=== PATIENT | female | born 1980 | race Caucasian/White ===

== ENCOUNTER 2016-11-03 07:20 | Day surgery (SDC) | payer OTHER ==
[~2016-11-03] VITALS: Ht 162.6 cm; Wt 71.7 kg
[~2016-11-03 07:20] MED LIST: ABILIFY5 MG PO; ALEVE220 MG PO; ANTABUSE250 MG PO; BUSPAR10 MG PO; CELEXA40 MG PO; CLONAZEPAM1 MG PO; DEPO-PROVER150 MG/ML IM; DISULFIRAM250 MG PO; EFFEXOR XR150 MG PO; ESCITALOPRAM OX20 MG PO; FAMOTIDINE20 MG PO; FERROUS SULFAT325 MG PO; FLAGYL500 MG PO; FLEXERIL10 MG PO; FLEXERIL5 MG PO; GABAPENTIN300 MG PO; GUAIFENESIN600 M1 PO; IBUPROFEN800 MG PO; KLONOPIN0.5 M1 PO; LIBRIUM25 MG PO; LIDODERM 5% P1 PATCH TD; LYRICA100 MG PO; MIRTAZAPINE15 MG PO; MOBIC15 MG PO; MOTRIN800 MG PO; MULTIPLE VITAM1 EAC4 PO; NAPROSYN500 MG PO; NAPROXEN500 MG PO; NEURONTIN100 MG PO; NORCO 5/3251 TABLET PO; OXYCODONE HCL5 MG PO; PERCOCET 5/31 TABLET PO; PREDNISONE10 MG PO; PRENATAL TABLE1 EAC3 PO; PROVENTIL HFA6.7 GM IH; TESSALON PERLE100 MG PO; THIAMINE HCL100 MG PO; TOPAMAX50 MG PO; TOPIRAMATE50 MG PO; TRAZODONE HCL50 MG PO; TYLENOL EXTRA500 MG PO; ULTRAM50 MG PO; VENTOLIN HFA18 GM IH; VICODIN 5-3001 EACH PO; XANAX0.5 MG PO; ZOLOFT100 MG PO
[2016-11-06] MEDS ORDERED: PROVERA,CYCRIN10 MG PO (11:13)
[2016-11-06] MEDS ORDERED: DEPO-PROVER150 MG/ML IM (11:14)
== END 2016-11-03 09:27 | disposition home or self-care (01) ==
LOC: PAIN 07:20 → SDC 08:00 → PAIN 09:27
DX: M47.896 Other spondylosis, lumbar region (principal); M54.16 Radiculopathy, lumbar region; M48.06 Spinal stenosis, lumbar region; F41.1 Generalized anxiety disorder; F10.20 Alcohol dependence, uncomplicated; M79.7 Fibromyalgia; G60.9 Hereditary and idiopathic neuropathy, unspecified; M51.36 Other intervertebral disc degeneration, lumbar region; F17.200 Nicotine dependence, unspecified, uncomplicated
CPT/HCPCS: J1030; J2250; J3010; S0020

== ENCOUNTER 2016-11-10 07:51 | Day surgery (SDC) | payer OTHER ==
[~2016-11-10] VITALS: Ht 162.6 cm; Wt 71.7 kg
[~2016-11-10 07:51] MED LIST changes: +PROVERA,CYCRIN10 MG PO
== END 2016-11-10 10:05 | disposition home or self-care (01) ==
LOC: PAIN 07:51 → SDC 08:30 → PAIN 10:05
DX: M47.896 Other spondylosis, lumbar region (principal); J45.909 Unspecified asthma, uncomplicated; Z79.51 Long term (current) use of inhaled steroids; F41.1 Generalized anxiety disorder; M54.5 Low back pain
CPT/HCPCS: J1030; J2250; J3010; S0020

== ENCOUNTER 2017-01-21 07:56 | Day surgery (SDC) | payer OTHER ==
[~2017-01-21] VITALS: Ht 162.6 cm; Wt 73.5 kg
[~2017-01-21 07:56] MED LIST changes: +ABILIFY15 MG PO; +LYRICA150 MG PO; +TOPICAINE113 GM TP; +ZANAFLEX4 M1 PO
[2017-01-21] MEDS ORDERED: ZITHROMAX Z-PA250 MG PO (08:25)
[2017-01-21] MEDS ORDERED: DAY TIME COLD-237 ML PO (08:27)
== END 2017-01-21 09:42 | disposition home or self-care (01) ==
LOC: PAIN 07:56 → SDC 08:45 → PAIN 08:45
PROC: 015B3ZZ Destruction of Lumbar Nerve, Percutaneous Approach (ICD-10-PCS; principal; 2017-01-21)
DX: M47.26 Other spondylosis with radiculopathy, lumbar region (principal); F17.200 Nicotine dependence, unspecified, uncomplicated; F10.21 Alcohol dependence, in remission; Z87.898 Personal history of other specified conditions
CPT/HCPCS: J1030; J2250; J3010; S0020

== ENCOUNTER 2017-01-28 10:19 | Day surgery (SDC) | payer OTHER ==
[~2017-01-28] VITALS: Ht 164.5 cm; Wt 73.5 kg
[~2017-01-28 10:19] MED LIST changes: +DAY TIME COLD-237 ML PO; +ZITHROMAX Z-PA250 MG PO
== END 2017-01-28 11:50 | disposition home or self-care (01) ==
LOC: PAIN 10:19 → SDC 11:00 → PAIN 11:00
DX: M51.16 Intervertebral disc disorders with radiculopathy, lumbar region (principal); M48.06 Spinal stenosis, lumbar region; J45.909 Unspecified asthma, uncomplicated; D64.9 Anemia, unspecified; F17.210 Nicotine dependence, cigarettes, uncomplicated; F41.8 Other specified anxiety disorders; G60.9 Hereditary and idiopathic neuropathy, unspecified; M79.2 Neuralgia and neuritis, unspecified; F10.21 Alcohol dependence, in remission; Z79.891 Long term (current) use of opiate analgesic; Z79.899 Other long term (current) drug therapy
CPT/HCPCS: J1030; J2250; J3010; S0020

== ENCOUNTER 2017-02-28 01:30 | Emergency (ER) | payer OTHER ==
[~2017-02-28] VITALS: Ht 162.6 cm; Wt 72.1 kg
[2017-02-28 09:01] VITALS: BP 107/69
[2017-03-01] MEDS ORDERED: FLEXERIL5 MG PO (19:09)
[2017-03-01] MEDS ORDERED: NORCO 5/3251 TABLET PO (19:09)
== END 2017-02-28 09:06 | disposition home or self-care (01) ==
LOC: EME → EDBD 01:30 → EME 09:06
DX: S01.01XA Laceration without foreign body of scalp, initial encounter (principal); W19.XXXA Unspecified fall, initial encounter; F10.129 Alcohol abuse with intoxication, unspecified; Z23 Encounter for immunization; J45.909 Unspecified asthma, uncomplicated; F17.200 Nicotine dependence, unspecified, uncomplicated
CPT/HCPCS: 70450; 99281; 99283

== ENCOUNTER 2017-03-01 16:52 | Emergency (ER) | payer OTHER ==
[~2017-03-01] VITALS: Ht 162.6 cm; Wt 72.3 kg
[2017-03-01] MEDS ORDERED: FLEXERIL5 MG PO (19:09)
[2017-03-01] MEDS ORDERED: NORCO 5/3251 TABLET PO (19:09)
[2017-03-01 19:53] VITALS: BP 127/89
== END 2017-03-01 20:00 | disposition home or self-care (01) ==
LOC: EME 16:52
DX: S39.012A Strain of muscle, fascia and tendon of lower back, initial encounter (principal); V49.10XA Passenger injured in collision with unspecified motor vehicles in nontraffic accident, initial encounter; F17.200 Nicotine dependence, unspecified, uncomplicated
CPT/HCPCS: 72110; 99281; 99284

== ENCOUNTER 2017-12-28 15:21 | Emergency (ER) | payer OTHER ==
[~2017-12-28] VITALS: Ht 164.5 cm; Wt 63.6 kg
[2017-12-28 17:05] LABS: APPEARANCE CLOUDY ((CLEAR)); BILIRUBIN NEGATIVE; BLOOD NEGATIVE; COLOR YELLOW ((YELLOW)); GLUCOSE (STRIP) NEGATIVE; KETONES NEGATIVE; LEUKOCYTES NEGATIVE; NITRITE NEGATIVE; PROTEIN (STRIP) NEGATIVE; SPECIFIC GRAVITY 1.009 (1.000-1.030); UROBILINOGEN 0.2 MG/DL (0.2-1.0)
[2017-12-28 17:07] LABS: BASOPHIL (%) 0.3 % (0-1); EOSINOPHIL (%) 0.8 % (0-5); EOSINOPHIL COUNT 0.1 K/uL (0-0.3); HEMATOCRIT 41.4 % (36.0-46.0); IMMATURE GRANULOCYTE (%) 0.3 % (0.0-0.7); LYMPHOCYTE (%) 30.4 % (15-42); LYMPHOCYTE COUNT 2.8 K/uL (1.0-2.8); MCH 30.2 PG (29.0-34.0); MCHC 33.8 G/DL (30.0-36.0); MCV 89.2 FL (83-99); MONOCYTE (%) 5.3 % (3-12); MONOCYTE COUNT 0.5 K/uL (0-0.8); NEUTROPHIL (%) 62.9 % (45-76); NEUTROPHIL COUNT 5.9 K/uL (1.8-6.4); PLATELET COUNT 245 K/uL (156-360); RBC DIS.WIDTH-CV 13.6 % (11.8-14.6); RBC DIS.WIDTH-SD 44.4 % (39-53); RED BLOOD COUNT 4.64 M/uL (3.80-5.20); WHITE BLOOD COUNT 9.3 K/uL (4.1-10.2)
[2017-12-28 17:14] LABS: AMPHETAMINE NEGATIVE (500 ng/mL); BARBITURATES NEGATIVE (200 ng/mL); BENZODIAZEPINES NEGATIVE (150 ng/mL); BUPRENORPHINE NEGATIVE (10 ng/mL); COCAINE NEGATIVE (150 ng/mL); METHADONE NEGATIVE (200 ng/mL); METHAMPHETAMINE NEGATIVE (500 ng/mL); OPIATES (MORPHINE) NEGATIVE (100 ng/mL); OXYCODONE NEGATIVE (100 ng/mL); PHENCYCLIDINE NEGATIVE (25 ng/mL); PROPOXYPHENE NEGATIVE (300 ng/mL); THC CANNABINOIDS NEGATIVE (50 ng/mL); TRICYCLIC ANTIDEPRESSANTS NEGATIVE (300 ng/mL)
[2017-12-28 17:15] LABS: ALBUMIN 4.4 g/dL (3.2-4.8); CHLORIDE 111 mEq/L (99-109); POTASSIUM 4.1 mEq/L (3.7-5.4); SODIUM 141 mEq/L (136-147)
[2017-12-28 17:16] LABS: MAGNESIUM 2.2 mg/dL (1.3-2.7)
[2017-12-28 17:17] LABS: GLUCOSE 89 mg/dL (70-99)
[2017-12-28 17:18] LABS: TOTAL PROTEIN 7.1 g/dL (6.4-8.3)
[2017-12-28 17:19] LABS: TOTAL BILIRUBIN 0.4 mg/dL (0.0-1.0)
[2017-12-28 17:20] LABS: SERUM ETHYL ALCOHOL < 10 mg/dL
[2017-12-28 17:21] LABS: ALKALINE PHOSPHATASE 86 IU/L (3-129); CREATININE 0.8 mg/dL (0.6-1.3); GFR ESTIMATE (CALCULATED) > 59 mL/min/
[2017-12-28 17:22] LABS: UREA NITROGEN (BUN) 11 mg/dL (9-23)
[2017-12-28 17:23] LABS: AST (GOT) 16 IU/L (2-34)
[2017-12-28 17:24] LABS: ALT (GPT) 32 IU/L (3-49)
[2017-12-28 17:31] LABS: QUANTITATIVE HCG < 4.0 MIU/ML
[2017-12-28 17:49] LABS: BACTERIA RARE /HPF; EPITHELIAL CELLS RARE /HPF; MUCUS NONE SEEN /LPF; RED BLOOD CELLS NONE SEEN /HPF (0-5); UCUL ADDED? NO; WHITE BLOOD CELLS NONE SEEN /HPF (0-5)
[2017-12-28 17:50] LABS: AMORPHOUS PHOSPHATE CRYSTALS 2+
[2017-12-28 20:05] VITALS: BP 110/79
== END 2017-12-28 20:46 | disposition home or self-care (01) ==
LOC: EME 15:21
PROVIDERS: Emergency Medicine
DX: R55 Syncope and collapse (principal); R42 Dizziness and giddiness; M79.7 Fibromyalgia; J45.909 Unspecified asthma, uncomplicated; G43.909 Migraine, unspecified, not intractable, without status migrainosus; F17.200 Nicotine dependence, unspecified, uncomplicated; Z79.3 Long term (current) use of hormonal contraceptives; Z79.891 Long term (current) use of opiate analgesic; Z87.39 Personal history of other diseases of the musculoskeletal system and connective tissue
CPT/HCPCS: 71046; 80053; 81003; 83735; 84702; 85025; 93005; 99281; 99285; G0480; J7040

== ENCOUNTER 2018-04-18 19:58 | Emergency (ER) | payer OTHER ==
[~2018-04-18] VITALS: Ht 162.6 cm; Wt 66.0 kg
[2018-04-18] MEDS ORDERED: MOTRIN600 MG PO (20:50)
[2018-04-18 21:07] VITALS: BP 106/76
== END 2018-04-18 21:09 | disposition home or self-care (01) ==
LOC: EME 19:58
DX: S93.401A Sprain of unspecified ligament of right ankle, initial encounter (principal); X50.1XXA Overexertion from prolonged static or awkward postures, initial encounter; F17.200 Nicotine dependence, unspecified, uncomplicated
CPT/HCPCS: 73610; 99281; 99284